=== PATIENT | female | born 1950 | race Caucasian/White ===

== ENCOUNTER 2017-01-24 10:21 | Inpatient (IN) | payer MEDICARE, OTHER ==
[2017-01-11 13:22] LABS: BASOPHILS 0.6 %; BASOPHILS ABSOLUTE 0.04 10/3/uL (0.0-0.16); EOSINOPHILS 5.4 %; EOSINOPHILS ABSOLUTE 0.36 10/3/uL (0.0-0.53); HEMATOCRIT 42.5 % (36.0-48.0); HEMOGLOBIN 13.7 g/dL (12.0-16.0); IMMATURE GRANULOCYTES 0.3 %; IMMATURE GRANULOCYTES ABSOLUTE 0.02 10/3/uL (0.0-0.11); LYMPHOCYTES 29.8 %; LYMPHOCYTES ABSOLUTE 1.98 10/3/uL (0.67-4.30); MANUAL DIFF NO %; MEAN CORPUS HGB CONC 32.2 g/dL (32.0-36.0); MEAN CORPUSCULAR HEMOGLOB 29.2 pg (26.0-34.0); MEAN CORPUSCULAR VOLUME 90.6 fL (80-100); MEAN PLATELET VOLUME 9.3 fL (9.2-13.0); MONOCYTES 6.6 %; MONOCYTES ABSOLUTE 0.44 10/3/uL (0.21-1.20); NEUTROPHILS 57.3 %; PLATELET COUNT 228 10/3/uL (150-400); RBC DISTRIBUTION WIDTH 13.7 % (12.0-16.0); RED CELL COUNT 4.69 10/6/uL (4.0-5.6); WHITE BLOOD CELLS 6.6 10/3/uL (4.5-10.5)
[2017-01-11 13:31] LABS: PROTIME (NOT ORD) 13.2 SEC (12.0-14.5)
[2017-01-11 13:51] LABS: A/G RATIO 1.2 (0.7-1.9); ALBUMIN 3.8 G/DL (3.5-5.0); ALKALINE PHOSPHATASE 127 U/L (45-117); CALCIUM, SERUM 8.8 MG/DL (8.5-10.4); CHLORIDE, SERUM 103 MMOL/L (96-112); CO2 (CARBON DIOXIDE) 28 MMOL/L (24-34); GFR AFRICAN AMERICAN 77 ML/MIN (>=60); GFR NON AFRICAN AMERICAN 67 ML/MIN (>=60); GLOBULIN 3.3 G/DL (2.5-4.1); POTASSIUM, SERUM 4.2 MMOL/L (3.5-5.3); SGOT(AST) 16 U/L (5-40); SGPT(ALT) 21 U/L (5-65); SODIUM, SERUM 142 MMOL/L (135-148); TOTAL BILIRUBIN 0.4 MG/DL (0-1.2); TOTAL PROTEIN 7.1 G/DL (6.0-8.5)
[2017-01-11 13:52] LABS: BUN (BLOOD UREA NITROGEN) 15 MG/DL (6-23); GLUCOSE, SERUM 72 MG/DL (60-99)
[2017-01-11 15:49] LABS: ASCORBIC ACID (UR NOT ORDER) NEG (NEG); BILIRUBIN, URINE NEGATIVE (NEG); KETONE, URINE NEGATIVE (NEG); LEUKOCYTE ESTERASE(NOT OR LARGE (NEG); WBC (NOT ORDERED) (RFLEX) 45 (0-5)
--- NOTE | ~2017-01-24 | DS ---
Discharge Summary [facility] [address] [place]. [address] NAME: NAZIA SHAH : 50 STATUS : DIS IN PAT#: [id number] AGE: 66 ADM/REG DATE : 01/24/17 MR#: [id number] REPORT SERV DATE: 02/07/17 DICTATED BY: CHECO SANTIAGO DATE: 02/06/17 REPORT STATUS : Draft TRANSCRIBED BY: KUNAL DATE: 02/06/17 Data Collection from hospitalization DISCHARGE DIAGNOSES: 1. Severe left knee degenerative joint disease. 2. Hypertension. 3. Obesity. 4. Migraines. 5. Depression. 6. Asthma. 7. Gastroesophageal reflux disease. CONSULTATIONS: None. PROCEDURES PERFORMED: Left posterior stabilized total knee replacement, cemented, 01/24/2017. PATHOLOGY: Left knee joint arthroplasty - degenerative joint disease. No evidence was seen of an infectious or neoplastic process. MEDICATIONS: ProAir two puffs via inhaler every four hours as needed, Zyrtec 10 mg at bedtime, Celexa 10 mg daily, Flexeril 10 mg three times a day as needed, Upton 7.5/325 one to two tablets every four hours as needed, Xalatan one drop at bedtime, Levaquin 500 mg daily, Prinivil 20 mg daily, Mobic 15 mg daily, Zofran 4 mg every six hours as needed, Mirapex 0.25 mg twice a day, Zantac 300 mg twice a day, and Coumadin 5 mg daily. CONDITION AT DISCHARGE: Stable. DISPOSITION: The patient was discharged home on a regular diet with activities as instructed. She would follow up with Raj Trent on 02/07/2017. [facility] would follow [facility] at [facility] and lab work on 01/28/2017. HOSPITAL COURSE: This is a 66-year-old female who had undergone a right total hip arthroplasty in March of 2016. She said she has had increased pain. She was found to have severe left knee degenerative joint disease. Treatment options were discussed and it was elected to proceed with surgical intervention. She was admitted to the hospital at this time for further evaluation and treatment. Upon admission, she was taken to the operating room where she underwent the above-mentioned procedure. She tolerated this well, and there were no complications. On postop day #1, she was evaluated by Occupational and Physical Therapy. She was up sitting in a bedside chair. GEOVANNY hose were placed. Blood pressure was controlled. She was on lisinopril. Pepcid was continued as well as Mirapex and Celexa. The patient said she has had a cough. Discharge planning was performed. She continued to progress. On 01/27/2017, she still had a cough, but she said she has had this cough since September of 2016. She said she is allergic to everything. Discharge instructions were given. Due to her improved and stable condition, she was discharged home with the above-stated instructions. Discharge Summary [facility] [address] [place]. [address] NAME: NAZIA SHAH : 50 STATUS : DIS IN [facility]#: [id number] AGE: 66 ADM/REG DATE : 01/24/17 MR#: [id number] REPORT SERV DATE: 02/07/17 DICTATED BY: CHECO SANTIAGO DATE: 02/06/17 REPORT STATUS : Draft TRANSCRIBED BY: KUNAL DATE: 02/06/17 Information collected by: Tayler Rose I submit the above information as my discharge summary. KENNEDI/KUNAL Jaison Santiago M.D. / [id number] CC: Yg Saravia M.D.
--- NOTE | ~2017-01-24 | OP ---
Record Of Operation [facility] [address] [place]. [address] NAME: NAZIA SHAH : 50 STATUS : ADM IN [facility]#: [id number] AGE: 66 ADM/REG DATE : 01/24/17 MR#: [id number] REPORT SERV DATE: 01/24/17 DICTATED BY: CHECO SANTIAGO DATE: 01/24/17 REPORT STATUS : Draft TRANSCRIBED BY: MODGuy DATE: 01/24/17 DATE OF PROCEDURE: 01/24/2017 PREOPERATIVE DIAGNOSIS: Severe left knee degenerative joint disease. POSTOPERATIVE DIAGNOSIS: Severe left knee degenerative joint disease. OPERATION: Left posterior stabilized total knee replacement, cemented. SIDE: Left. SIZE: See chart. ANESTHESIA: See chart. ESTIMATED BLOOD LOSS: About 10 mL. TOURNIQUET TIME: Approximately 1 hour and 10 minutes. COMPLICATIONS: None. SPECIMENS: Articular surfaces. PROCEDURE: The patient was appropriately identified and marked. The operative side agreed with the consent form and it was checked by all members of the surgical team. The patient was taken to the operating room and anesthesia was induced per the anesthesiologist. The patient was carefully transferred to the operating table without incident. The patient received appropriate prophylactic antibiotics and a Thomas catheter was placed in the standard sterile technique. The patient was then carefully positioned, padded, prepped and draped in the normal sterile fashion. The operative leg had been appropriately identified and checked by all members of the operating team against the consent form and found to be the correct limb. The patient's lower extremity was then exsanguinated with an Edmond wrap and a tourniquet was inflated to 350 mm/Hg. Sharp dissection was carried out through a straight midline longitudinal incision and electrocautery through the fat. Sharp quad splitting approach was carried out between about the medial 10 percent of the tendon and the lateral 90 percent of the tendon and down around the medial aspect of the patella and then 1 cm medial to the tibial tubercle. The patella was carefully everted and the posterior fat pad was excised and gentle MCL elevation was carried out off the proximal medial tibia subperiosteally. IM guide was placed in the distal femur after using the appropriate drill. The distal femoral cutting guide was held with 2 pins and the distal cut made. Meniscal fragments and the ACL and the PCL were excised with electrocautery, carefully staying anterior to the posterior fat pad. The proximal tibial alignment guide was set appropriately and the proximal tibial cut made. Spacer block verified full extension with excellent mediolateral balance. Sizing guide was used to place 2 drill holes in the distal femur and the four-in-one cutting block was then placed, impacted and checked Record Of Operation [facility] [address] [place]. [address] NAME: NAZIA SHAH : 50 STATUS : ADM IN PAT#: [id number] AGE: 66 ADM/REG DATE : 01/24/17 MR#: [id number] REPORT SERV DATE: 01/24/17 DICTATED BY: CHECO SANTIAGO DATE: 01/24/17 REPORT STATUS : Draft TRANSCRIBED BY: KUNAL DATE: 01/24/17 to be sure it would not notch with an tyler wing and it was held with 2 pins. The anterior cut, posterior cut, anterior chamfer and posterior chamfer cuts were made. The pins were removed and the block was removed. A posterior release was carried out with a curved 3/4 inch osteotome staying right on the bone posteriorly. The box-cut guide was then placed, impacted and held with 2 pins and a reciprocating saw was used to cut out the box. With the trial components in place, there was excellent medial/lateral balance. The patella was then measured with a caliper, cut first with an oscillating saw and then reamed with a patella reamer. With the trial patella in place, there was excellent patellar tracking. Rotation was marked on the tibia and the tibia prepared with a drill and stamp chisel. All surfaces were then copiously irrigated with pulsatile lavage, carefully dried and then vacuum-mixed cement was pressurized with a cement gun in a doughy phase. The tibial component was placed, impacted and excess cement was removed. The cement was then pressurized in the femur and placed on the posterior runners of the femoral component, which was placed, impacted and excess cement removed and the knee was brought out into extension on a trial spacer. The cement was then pressurized in the patella. Patellar component was then placed, clamped and excess cement was removed. Once all cement was hardened, the knee was taken through range of motion. Further extruded cement was removed with a small osteotome. Then based on the trial inserts, we decided on the actual insert, which was placed in the standard fashion and held with a locking mechanism. The knee was then copiously irrigated and then closed in a layered fashion over a medium Hemovac drain superolaterally with interrupted #1 in the deep fascia, 2-0 subcutaneous and connor in the skin. The wounds were dressed sterilely and the tourniquet was deflated. The patient was then awakened and taken to the postanesthesia care unit without incident. All counts were correct at the end of the case. MADISON/KUNAL Jaison Santiago M.D. / [id number] CC: Jaison Santiago M.D.
[~2017-01-24 10:21] MED LIST: ALLEGRA180 PO; ASABAYER PO; C5 PO; CALTRA600D PO; CELEXA10 PO; FLEX PO; FLONASE NAS; MIRAPEX250 PO; MOBIC15 MG PO; MULTIPLE VIT PO; NAP500 PO; NORCO1 TA1 PO; NORV10 PO; OS500+D PO; PAX20 PO; PCET PO; PRILO PO; PRIN20 PO; PROAIR HFA INH; RANITIDINE300 MG PO; SEV VITS PO; SINGULAIR1 PO; ULTRAM50 PO; XALAT OPH; ZYRTEC ALLGY10 MG PO; [UNRECOGNIZED DRUG - SUPPLY] OPH
[2017-01-25 05:50] LABS: INTERNATIONAL NORMAL RATI 1.1 UNITS (-); PROTIME (NOT ORD) 14.3 SEC (12.0-14.5)
[2017-01-25 05:51] LABS: BUN (BLOOD UREA NITROGEN) 14 MG/DL (6-23); CHLORIDE, SERUM 106 MMOL/L (96-112); CO2 (CARBON DIOXIDE) 31 MMOL/L (24-34); CREATININE 0.92 MG/DL (0.55-1.02); GFR AFRICAN AMERICAN 75 ML/MIN (>=60); GFR NON AFRICAN AMERICAN 65 ML/MIN (>=60); SODIUM, SERUM 143 MMOL/L (135-148)
[2017-01-25 05:57] LABS: HEMOGLOBIN 11.4 g/dL (12.0-16.0)
[2017-01-25 05:59] LABS: GLUCOSE, SERUM 97 MG/DL (60-99)
[2017-01-25 06:10] LABS: HEMATOCRIT 35.3 % (36.0-48.0)
[2017-01-26 04:33] LABS: HEMATOCRIT 31.5 % (36.0-48.0); HEMOGLOBIN 10.3 g/dL (12.0-16.0)
[2017-01-26 05:13] LABS: INTERNATIONAL NORMAL RATI 1.3 UNITS (-); PROTIME (NOT ORD) 16.2 SEC (12.0-14.5)
[2017-01-26] MEDS ORDERED: C5 PO (08:57)
[2017-01-26] MEDS ORDERED: NORCO1 TA2 PO (08:58)
[2017-01-26] MEDS ORDERED: ZOFRAN4 PO (08:58)
[2017-01-27 04:10] LABS: HEMOGLOBIN 10.4 g/dL (12.0-16.0)
[2017-01-27 04:24] LABS: INTERNATIONAL NORMAL RATI 1.4 UNITS (-); PROTIME (NOT ORD) 17.4 SEC (12.0-14.5)
[2017-01-27] MEDS ORDERED: LEVAQUIN5T PO (11:40)
[2017-04-18] MEDS ORDERED: COZ50 PO (12:23)
[2017-04-18] MEDS ORDERED: PRILO PO (12:24)
[2017-04-18] MEDS ORDERED: VITAMIN D31000 UNIT PO (12:26)
[2017-04-18] MEDS ORDERED: [UNRECOGNIZED DRUG - OTHER] OPH (12:26)
[2017-04-18] MEDS ORDERED: PRESERVISION A1 EAC1 PO (12:27)
== END 2017-01-27 14:30 | disposition home or self-care (01) | DRG 470 ==
LOC: SDC/OF 10:21 → 3JRC 17:50
PROVIDERS: Specialist
PROC: 3E0T3CZ (ICD-10-PCS; 2017-01-24)
PROC: 0SRD0J9 Replacement of Left Knee Joint with Synthetic Substitute, Cemented, Open Approach (ICD-10-PCS; principal; 2017-01-24 12:00)
DX: M17.12 Unilateral primary osteoarthritis, left knee (principal); Z68.41 Body mass index [BMI] 40.0-44.9, adult; I10 Essential (primary) hypertension; J45.909 Unspecified asthma, uncomplicated; K21.9 Gastro-esophageal reflux disease without esophagitis; Z85.3 Personal history of malignant neoplasm of breast; G25.81 Restless legs syndrome; J32.9 Chronic sinusitis, unspecified; E66.9 Obesity, unspecified; Z88.2 Allergy status to sulfonamides; Z88.0 Allergy status to penicillin; Z88.8 Allergy status to other drugs, medicaments and biological substances; Z79.899 Other long term (current) drug therapy
CPT/HCPCS: 71020; 80048; 80053; 81001; 82962; 85014; 85018; 85025; 85610; 87086; 87641; 88305; 88311; 93005; 94640; 97110-GP; 97116-GP; 97150-GP; 97161-GP; 97165-GO; A9270-GY; C1776; G8978-CK-GP; G8979-CI-GP; G8987-CJ-GO; G8988-CJ-GO; G8989-CJ-GO; J1580; J1885; J2250; J2270; J2274; J2405; J2550; J2795; J3010; J3370

== ENCOUNTER 2017-01-31 16:58 | Emergency (ER) | payer MEDICARE, OTHER ==
[2017-01-31 16:22] LABS: BASOPHILS 0.6 %; BASOPHILS ABSOLUTE 0.04 10/3/uL (0.0-0.16); EOSINOPHILS 10.7 %; EOSINOPHILS ABSOLUTE 0.77 10/3/uL (0.0-0.53); HEMATOCRIT 34.3 % (36.0-48.0); IMMATURE GRANULOCYTES 0.6 %; IMMATURE GRANULOCYTES ABSOLUTE 0.04 10/3/uL (0.0-0.11); LYMPHOCYTES 21.6 %; LYMPHOCYTES ABSOLUTE 1.55 10/3/uL (0.67-4.30); MEAN CORPUS HGB CONC 32.1 g/dL (32.0-36.0); MEAN CORPUSCULAR HEMOGLOB 29.2 pg (26.0-34.0); MEAN PLATELET VOLUME 8.5 fL (9.2-13.0); MONOCYTES 8.5 %; MONOCYTES ABSOLUTE 0.61 10/3/uL (0.21-1.20); NEUTROPHILS ABSOLUTE 4.17 10/3/uL (2.02-8.40); PLATELET COUNT 276 10/3/uL (150-400); RBC DISTRIBUTION WIDTH 13.9 % (12.0-16.0); RED CELL COUNT 3.77 10/6/uL (4.0-5.6); WHITE BLOOD CELLS 7.2 10/3/uL (4.5-10.5)
[2017-01-31 16:23] LABS: ER CBC TAT 0 Hrs 08 Mins; MANUAL DIFF NO %
[2017-01-31 16:37] LABS: INTERNATIONAL NORMAL RATI 2.1 UNITS (-); PARTIAL THROMBO TIME 43.9 SEC (22.5-37.2)
[2017-01-31 16:38] LABS: PROTIME (NOT ORD) 23.4 SEC (12.0-14.5)
[2017-01-31 16:39] LABS: BUN (BLOOD UREA NITROGEN) 12 MG/DL (6-23); CALCIUM, SERUM 8.6 MG/DL (8.5-10.4); CHEST PAIN PROFILE TAT 0 Hrs 25 Mins; CHLORIDE, SERUM 102 MMOL/L (96-112); CO2 (CARBON DIOXIDE) 35 MMOL/L (24-34); CREATININE 0.91 MG/DL (0.55-1.02); GFR AFRICAN AMERICAN 76 ML/MIN (>=60); GFR NON AFRICAN AMERICAN 66 ML/MIN (>=60); GLUCOSE, SERUM 108 MG/DL (60-99); POTASSIUM, SERUM 3.7 MMOL/L (3.5-5.3); SODIUM, SERUM 138 MMOL/L (135-148); TROPONIN I <0.02 NG/ML (<0.05)
[~2017-01-31 16:58] MED LIST changes: +LEVAQUIN5T PO; +NORCO1 TA2 PO; +ZOFRAN4 PO
[2017-04-18] MEDS ORDERED: COZ50 PO (12:23)
[2017-04-18] MEDS ORDERED: PRILO PO (12:24)
[2017-04-18] MEDS ORDERED: VITAMIN D31000 UNIT PO (12:26)
[2017-04-18] MEDS ORDERED: [UNRECOGNIZED DRUG - OTHER] OPH (12:26)
[2017-04-18] MEDS ORDERED: PRESERVISION A1 EAC1 PO (12:27)
== END 2017-01-31 17:35 | disposition home or self-care (01) ==
LOC: ER 16:58
PROVIDERS: Emergency Medicine
DX: J40 Bronchitis, not specified as acute or chronic (principal); I10 Essential (primary) hypertension; K21.9 Gastro-esophageal reflux disease without esophagitis; Z88.0 Allergy status to penicillin; Z88.2 Allergy status to sulfonamides; Z88.8 Allergy status to other drugs, medicaments and biological substances; Z79.899 Other long term (current) drug therapy; Z79.01 Long term (current) use of anticoagulants
CPT/HCPCS: 71010; 80048; 83735; 84484; 85025; 85610; 85730; 93005; 99284